=== PATIENT | female | born 1990 | race Caucasian/White ===

== ENCOUNTER 2019-03-13 01:22 | Emergency (ER) | payer OTHER ==
[2019-03-13 01:43] VITALS: BMI 28.7
[2019-03-13 02:03] LABS: SQUAMOUS EPITHIAL 5 /hpf (0-5); URINE BILIRUBIN NEGATIVE (NEGATIVE); URINE BLOOD NEGATIVE (NEGATIVE); URINE CLARITY Hazy (Clear); URINE COLOR Yellow (YELLOW); URINE GLUCOSE (UA) 1+ mg/dL (Normal); URINE LEUKOCYTE ESTERASE NEG Leu/uL (Negative); URINE PROTEIN NEGATIVE (NEGATIVE); URINE UROBILINOGEN NORMAL mg/dL (0.2-1.0)
[2019-03-13] MEDS ORDERED: Lactated Ringer's 1,000 ML IV ONE (02:23)
[2019-03-13] MEDS ORDERED: Lactated Ringer's 1,000 ML IV SCH (02:30)
--- NOTE | 2019-03-13 09:32 | OBHP ---
Datetime: 03/13/2019 02:30 IP Adm Impression: , intrauterine IP Adm Impression Other: Left sided flank pain IP Admit Plan: Observation/Evaluation Admit Comment, IP Provider: 28 yo g1 edc 07/13/10 @ 22.4wks w/ c/o acute onset of left sided flank pa in, spont resolved with recurrence this morning. She denies n/v, vag bleeding, ctxs or uterine crampi ng. Last coitus was Sun morning. She states preg has been uncomplicated. She sees Dr Gould for her pren care. pmhx: states she was diagnosed with a kidney stone in right kidney which was an incidental finding; plan tar fasciatis of right foot and rt forearm pshx: denies shx: denies tobacco, etoh, or illicit drug use nkda medic:pnv; vit D [id number] I: 22.4wks left sided flank pain with rbcs in urine eval for kidney stone p: iv hydration renal us. Tylenol for pain Pelvic Type - PN: Not Done Extremities - PN: Normal Abdomen - PN: Normal Back - PN: Normal Breast - PN: Not Done Lungs - PN: Normal Heart - PN: Normal Neurologic - PN: Normal HEENT - PN: Normal General - PN: Normal FHR - Baseline A Provider: 140 Comments, ACOG Physical Exam: ua: 7rbc; 1wbc; neg nitrate/le; spec gr 1.015 EGA AdmitDate IP: 22.4 Vital Signs Provider: Reviewed IP Chief Complaint: Other Genitourinary Exam: Not Done
--- NOTE | 2019-03-13 10:37 | US ---
Date of service: 03/13/2019 PROCEDURE: Ultrasound of the Kidneys HISTORY: left sided flank pain eval for kidney stones, patient 22 weeks . COMPARISON: None available. TECHNIQUE: Sonogram of the kidneys. FINDINGS: RIGHT KIDNEY: Measures: 12.0 x 5.0 x 6.0 cm. Mild fullness of the right renal pelvis. No obstructing calculus or hydronephrosis identified. LEFT KIDNEY: Measures: 12.4 x 5.5 x 5.9 cm. No obstructing calculus or hydronephrosis identified. OTHER FINDINGS: None. IMPRESSION: Mild fullness of the right renal pelvis. No obstructing calculus identified.
--- NOTE | 2019-03-13 12:06 | OBPN ---
Datetime: 03/13/2019 11:35 IP Progress Plan: Discharge IP Progress Note Comment: Patient receive din LDR#!; denies any back pain. Was hungry; ate without n ausea or vomiting. S/P renal ultrasound: no obstructing calculi or hydronephrosis. Mild fullness of right collecting system Assessment: 28 y.o. P0, 22w 4d - left flank pain - resolved. NO evidence of renal stones. Afebrile , vital signs stable. Patient is clinically stable. Plan: 1) Discharge home 2) Keep appontments, as scheduled (03/28/19 -glucose screeing) 3) Drink half of body weight in ouunces of water 4) Rx: MocroBID 100 mg 1 tab p.o. x 7 days - as per and D/W Dr. Gould. Datetime: 03/13/2019 02:30 FHR - Baseline A Provider: 140 Vital Signs Provider: Reviewed
[2019-03-13 16:11] VITALS: BP 113/69; PULSE 94; RESP 18; TEMP 97.6
== END 2019-03-13 12:11 | disposition home or self-care (01) ==
LOC: C.EROB 01:22
DX: O26.892 Other specified pregnancy related conditions, second trimester (principal); Z3A.22 22 weeks gestation of pregnancy
CPT/HCPCS: 76770; 81001; 99283; J7120